=== PATIENT | male | born 1975 | race Caucasian/White ===

== ENCOUNTER → 2017-02-15 | Outpatient (CLI) | payer MEDICAID ==
[~2017-02-15] MED LIST: ALBUTEROL2 PUFFS/17 IN; ASPIRIN 81MG TA81 MG PO; AZITHROMYCIN250 M1 PO; CIPRO500 MG OR; CIPRO500 MG PO; CLONAZEPAM 1MG T1 MG PO; DARVOCET-N 1001 EACH PO; DARVOCET-N6 EACH/PAK PO; FLAGYL 250MG.250 MG PO; FLEXERIL10 MG PO; KEFLEX 500MG.500 MG PO; LORAZEPAM0.5 MG/TAB PO; LORTAB 5/500 501 TAB PO; PERCOCET 325 MG1 TA3 PO; PRILOSEC40 MG PO; SEPTRA DS 800 M1 TAB PO; SEROQUEL XR150 MG PO; SERTRALINE 100100 MG PO
[2017-02-15 18:23] LABS: HEMOGLOBIN 17.5 g/dL (14.1-18.0); LYMPH % 22.7 % (10-50)
[2017-02-15 18:56] LABS: BUN 11 mg/dL (7-18)
[2017-02-15 20:35] LABS: GFR (ESTIMATED) 82 ML/MIN (>60)
[2017-02-17 08:39] LABS: Vitamin D, 25-Hydroxy 33.3 ng/mL (30.0-100.0)
[2017-02-17 09:41] LABS: Folate (Folic Acid) 2.8 ng/mL (>3.0)
== END ==
LOC: LAB 17:25
PROVIDERS: Physician Assistant
DX: K50.90 Crohn's disease, unspecified, without complications (principal); Z79.899 Other long term (current) drug therapy